=== PATIENT | female | born 1950 | race Caucasian/White ===

== ENCOUNTER 2019-04-29 16:43 | Emergency (ER) | payer MEDICAID ==
[~2019-04-29] VITALS: Ht 165.1 cm; Wt 65.5 kg
[~2019-04-29 16:43] MED LIST: ALD25T PO; ARIP5TAB14 PO; ASPI81TA52 PO; CLON-527 PO; METH10TA4 PO; METO100T7 PO; NOR5T PO; NORCO10T PO; VILA20TA PO; ZALE5CAP PO
[2019-04-29 18:42] LABS: BASOPHILS % (AUTO) 0.3 % (0-1); EOSINOPHILS # (AUTO) 0.1 X10'3 (0-0.9); EOSINOPHILS % (AUTO) 0.8 % (0-6); LYMPHOCYTES % (AUTO) 29.3 % (21-51); MEAN CORPUSCULAR HEMOGLOBIN 31.7 PG (27.0-31.0); MEAN CORPUSCULAR HGB CONC 34.2 g/dL (33.0-36.5); MEAN CORPUSCULAR VOLUME 92.8 FL (78-98); MEAN PLATELET VOLUME 6.6 FL (7.4-10.4); MONOCYTES # (AUTO) 0.7 X10'3 (0-0.9); MONOCYTES % (AUTO) 9.8 % (2-12); NEUTROPHILS # (AUTO) 4.1 X10'3 (1.8-7.7); NEUTROPHILS % (AUTO) 59.8 % (42-75); PLATELET COUNT 276 X10'3 (140-440); RED BLOOD COUNT 4.09 X10'6 (4.20-5.60); RED CELL DISTRIBUTION WIDTH 13.1 % (11.5-14.5); WHITE BLOOD COUNT 6.8 X10'3 (4.5-11.0)
[2019-04-29 18:45] LABS: URINE AMPHETAMINE SCREEN NEGATIVE (Neg); URINE BARBITUATE SCREEN NEGATIVE (Neg); URINE BENZODIAZEPINES SCREEN NEGATIVE (Neg); URINE CANNABINOID SCREEN NEGATIVE (Neg); URINE COCAINE SCREEN NEGATIVE (Neg); URINE METHADONE SCREEN NEGATIVE (Neg); URINE OPIATE SCREEN NEGATIVE (Neg); URINE PHENCYCLIDINE SCREEN NEGATIVE (Neg)
[2019-04-29] MEDS ORDERED: LURA20TA PO (18:46)
[2019-04-29] MEDS ORDERED: QUELT PO (18:46)
[2019-04-29] MEDS ORDERED: MIRT15TA PO (18:46)
[2019-04-29] MEDS ORDERED: TRAZ-251 PO (18:46)
[2019-04-29 18:58] LABS: ALANINE AMINOTRANSFERASE 30 U/L (12-78); ALBUMIN 3.6 G/DL (3.4-5.0); ALBUMIN/GLOBULIN RATIO 0.9 (1.1-1.5); ALKALINE PHOSPHATASE 71 IU/L (46-116); ANION GAP 6 (8-16); ASPARTATE AMINO TRANSFERASE 19 U/L (10-37); BILIRUBIN,TOTAL 0.4 MG/DL (0.1-1.0); BLOOD UREA NITROGEN 17 MG/DL (7-18); BUN/CREATININE RATIO 15.9 (6.6-38.0); CHLORIDE 107 MMOL/L (99-107); CREATININE 1.07 MG/DL (0.40-0.90); GLUCOSE 108 MG/DL (70-104); POTASSIUM 3.6 MMOL/L (3.5-5.1); SODIUM 142 MMOL/L (135-145); TOTAL CARBON DIOXIDE 28.9 MMOL/L (24-32); TOTAL PROTEIN 7.6 G/DL (6.4-8.2); eGFR 51 ML/MIN
[2019-04-29 19:05] LABS: ETHANOL < 0.010 GM/DL (0.0-0.010)
--- NOTE | 2019-04-29 19:18 | NUR ---
Pt resting in bed. No distress noted. Breathing even and unlabored.
[2019-04-29] MEDS ORDERED: divalproex sod 250mg ER (24-hour) tablet PO SCH (20:05)
[2019-04-29] MEDS ORDERED: DIVA500T9 PO (20:39)
--- NOTE | 2019-04-29 21:45 | NUR ---
Reviewed discharge instructions. Patient provided with resources. Will follow up with primary care physician. Pt is in private vehicle and is d/c to daughter's house. Pt ambulated independently out to car accompanied by staff. Pt is A&O. Pt was given d/c paperwork along with her prescription.
[2019-04-29 23:17] VITALS: BP 147/76
== END 2019-04-29 23:24 | disposition home or self-care (01) ==
LOC: ER 16:44
DX: R45.4 Irritability and anger (principal); F10.99 Alcohol use, unspecified with unspecified alcohol-induced disorder; Z88.8 Allergy status to other drugs, medicaments and biological substances; Z88.6 Allergy status to analgesic agent; Z79.82 Long term (current) use of aspirin; Z79.899 Other long term (current) drug therapy; Y90.9 Presence of alcohol in blood, level not specified
CPT/HCPCS: 36415; 80053; 80305; 80320; 84443; 85025; 99284; 99285

== ENCOUNTER → 2023-09-18 | Outpatient (CLI) | payer MEDICARE, MEDICAID ==
[~2023-09-18] MED LIST changes: -ALD25T PO; -ARIP5TAB14 PO; +LURA20TA8 PO; -METH10TA4 PO; +MIRT-142 PO; -NORCO10T PO; +QUELT PO; +TRAZ-251 PO; -ZALE5CAP PO
== END | disposition home or self-care (01) ==
LOC: RAD 13:54
DX: M25.561 Pain in right knee (principal)
CPT/HCPCS: 73564